=== PATIENT | female | born 1985 | race Two or more races ===

== ENCOUNTER 2023-08-03 16:57 | Outpatient (RCR) | payer OTHER, SELFPAY ==
--- NOTE | ~2023-08-03 | US_ITS ---
EXAMINATION: US OB limited w BPP DATE: 08/03/2023 18:38 INDICATION: Third trimester with decreased movements and variables on nonstress test. TECHNIQUE: Real-time pelvic ultrasound was performed. The interpreting radiologist was not present fo r the study. COMPARISON: None. FINDINGS: There is a single living fetus in vertex presentation. The placenta is anterior. heart rate is 144 beats per minute (bpm). Biophysical profile performed by the technologist: breathing (30 sec sustained breathing in 30 minutes): 2 out of 2 movement (3 gross body movements in 30 minutes): 2 out of 2 tone (one episode of epezpmi-wgvgtzetr-xwmygvl limb movement): 2 out of 2 Amniotic fluid pocket (2 cm): 2 out of 2 Total score: 8 out of 8 IMPRESSION: 1. Single living fetus in vertex presentation with heart rate of 144 bpm. 2. Biophysical profile 8 out of 8. Reviewed, dictated and finalized at location A. CARE PHYSICAL THERAPIST
--- NOTE | 2023-08-03 19:11 | PC.NURSE ---
Spoke with Dr Rylie An about patient, reported patients C/O decreased movement, FHT, irregular contractions, and BPP results. Patient now states that she is feeling baby move much more. Dr. Rylie An requested ANABELA results and to continue to monitor FHT.
--- NOTE | 2023-08-03 19:41 | PC.NURSE ---
Updated Dr Rylie An on patients ANABELA results of 7.4 and Cat I tracing since he was last updated. OK to discharge at this time, patient was given education about when to return, to call if she has any questions, and instructed to follow up in office as previously scheduled.
[2023-08-03 19:44] VITALS: BP 101/60
--- NOTE | 2023-08-03 19:45 | PC.NURSE ---
1925: oncology technician called to state the pts AANBELA is 7.4. pt states the provider will ammend his note to add the ANABELA of 7.4.
== END 2023-11-01 23:59 | disposition home or self-care (01) ==
LOC: ANHOBOP 16:57
PROVIDERS: Visit Provider Obstetrics & Gynecology
DX: O36.8130 Decreased fetal movements, third trimester, not applicable or unspecified (principal); Z3A.40 40 weeks gestation of pregnancy
CPT/HCPCS: 59025; 76815; 76819

== ENCOUNTER 2023-08-04 05:33 | Inpatient (IN) | payer OTHER, SELFPAY ==
[2023-08-04] VITALS (143 sets, daily range): BP systolic 88–161; BP diastolic 42–105; PULSE 70–132; RESP 18; TEMP 36.2–37.4; O2SAT 64–100; BMI 24.1
[2023-08-04 06:10] LABS: Basophils Percent Auto 0.3 % (0.2-1.2); Eosinophils Absolute Auto 0.1 K/mm3 (0-0.3); Eosinophils Percent Auto 0.5 % (0-4.4); Hematocrit 41.6 % (37.0-47.0); Hemoglobin 14.2 g/dL (12.0-15.0); Immature Granulocyte Absolute 0.08 K/mm3 (0.00-0.031); Immature Granulocyte Percent A 0.7 % (0-0.5); Lymphocytes Absolute Auto 0.87 K/mm3 (0.9-3.2); Lymphocytes Percent Auto 8.2 % (18.3-44.2); Mean Corpuscular HGB Conc 34.1 g/dl (32-36); Mean Corpuscular Hemoglobin 32.5 pg (26-34); Mean Corpuscular Volume 95.2 fl (80-100); Monocytes Absolute Auto 0.7 K/mm3 (0.1-0.6); Monocytes Percent Auto 6.7 % (2.6-8.5); Neutrophils Absolute Auto 8.9 K/mm3 (1.3-6.7); Neutrophils Percent Auto 83.6 % (45.5-73.1); Platelet Count Result 172 k/mm3 (150-375); Red Blood Count 4.37 M/mm3 (4.2-5.4); Red Cell Distribution Width 12.9 % (11.5-14.5); White Blood Count 10.7 K/mm3 (4.5-10.0)
--- NOTE | 2023-08-04 06:31 | LDADM ---
This patient, Swathi Boudreaux, was admitted to Labor/Delivery/Recovery 105 on 08/04/23 at 05:33. Plans for labor, pain management and were discussed with patient. Patient/family oriented to hospital policies and general routines including ID bracelet, bed and alarms, visiting hours, pain management, procedures, bathroom and other care routines, personal items, smoking policy, room service/diet and guest tray routines, security routines, and visiting hours. Patient/Family are encouraged to report perceived risks to care and to ask questions if they do not understand what they are told or what they should do. See OBIX for further documentation.
[2023-08-04] MEDS: DEXTROSE 5%/LACTATED RINGERS 1,000 ML 999 ML IV CONT (06:41)
--- NOTE | 2023-08-04 07:33 | WPDANESEPP ---
Anes - Eval Pre Procedure Procedure: Labor Epidural Date/Time: 08/04/23 07:33 Surgeon: Fatimah Preop Diagnosis: Labor Pain Pre Op Diagnosis: Labor Patient Data Age: 37 Gender: F Height: 1.7 m Weight: 70 kg Last Vital Signs Pulse 112 H 08/04/23 07:31 BP 104/82 08/04/23 07:31 Pulse Ox 98 08/04/23 07:33 O2 Del Method Room Air 08/04/23 06:30 Allergies Allergy/AdvReac Type Severity Reaction Status Date / Time nickel Allergy Rash Verified 07/14/23 15:12 Home Medications Medication Instructions Recorded Confirmed Type prenat.vits,rigo,qnd-amye-uceot 1 tablet DAILY 07/14/23 08/04/23 History Laboratory Tests 08/04/23 05:58 WBC 10.7 H K/mm3 (4.5-10.0) RBC 4.37 M/mm3 (4.2-5.4) Hgb 14.2 g/dL (12.0-15.0) Hct 41.6 % (37.0-47.0) MCV 95.2 fl (80-100) MCH 32.5 pg (26-34) MCHC 34.1 g/dl (32-36) RDW 12.9 % (11.5-14.5) Plt Count 172 k/mm3 (150-375) MPV 10.0 fl (7.4-10.4) Immature Gran % (Auto) 0.7 H % (0-0.5) Neut % (Auto) 83.6 H % (45.5-73.1) Lymph % (Auto) 8.2 L % (18.3-44.2) [place] % (Auto) 6.7 % (2.6-8.5) Eos % (Auto) 0.5 % (0-4.4) Baso % (Auto) 0.3 % (0.2-1.2) Lymph # (Auto) 0.87 L K/mm3 (0.9-3.2) [place] # (Auto) 0.7 H K/mm3 (0.1-0.6) Eos # (Auto) 0.1 K/mm3 (0-0.3) Baso # (Auto) 0.0 K/mm3 (0.0-0.1) Abs Immat Gran (auto) 0.08 H K/mm3 (0.00-0.031) Absolute Neuts (auto) 8.9 H K/mm3 (1.3-6.7) Absolute Nucleated RBC 0.0 K/mm3 (0.0-0.012) Nucleated RBC % 0.0 % (0.0-0.2) RPR Pending Blood Type O Positive Antibody Screen Negative : gestational age Patient hx anesthesia problems: none Family hx anesthesia problems: none Results Review: All pre-operative results and documents have been reviewed as part of the pre-operative evaluation. [facility] Family History Family History Grandparent Colon cancer Father Diabetes mellitus Grandparent Diabetes mellitus Social History Social History Substance use: never Spiritual care concerns: No Exam Day of Procedure 08/04/23 07:33 Patient weight: normal Heart: regular rate and rhythm Lungs: normal air movement Airway: Mallampati scale class II Neurological: alert and oriented
--- NOTE | 2023-08-04 07:56 | PM.IMHP ---
H&P: HPI History of Present Illness Date/Time: 08/04/23 07:56 Chief Complaint: Labor at term Narrative: this is a 37-year-old 1 para 0 whose last menstrual period was 10/27/2022, EDC is 08/04/2023, presents at 40 weeks gestation in active labor. Her has been complicated. She is negative for group B strep. [facility] Family History Family History Grandparent Colon cancer Father Diabetes mellitus Grandparent Diabetes mellitus Social History Social History Substance use: never Spiritual care concerns: No Meds Home Medications and Allergies Home Medications Medication Instructions Recorded Confirmed Type prenat.vits,rigo,kha-dqwd-ocgsh 1 tablet DAILY 07/14/23 08/04/23 History Allergies Allergy/AdvReac Type Severity Reaction Status Date / Time nickel Allergy Rash Verified 07/14/23 15:12 Vital Signs Vital Signs - 24 hr 08/04/23 06:53 08/04/23 07:01 08/04/23 07:16 Pulse Rate 87 78 76 Blood Pressure 109/74 110/71 101/66 Pulse Oximetry Oxygen Delivery 08/04/23 07:31 08/04/23 07:33 08/04/23 07:38 Pulse Rate 112 H Blood Pressure 104/82 Pulse Oximetry 98 98 Oxygen Delivery 08/04/23 07:42 08/04/23 07:43 08/04/23 07:45 Pulse Rate 93 97 87 Blood Pressure 110/67 110/73 109/70 Pulse Oximetry 95 Oxygen Delivery 08/04/23 07:46 08/04/23 07:48 08/04/23 07:49 Pulse Rate 88 89 Blood Pressure 105/64 105/70 Pulse Oximetry 98 Oxygen Delivery 08/04/23 07:51 08/04/23 07:53 08/04/23 07:55 Pulse Rate 132 H 97 85 Blood Pressure 103/63 120/69 113/60 Pulse Oximetry 98 Oxygen Delivery 08/04/23 06:30 Pulse Rate Blood Pressure Pulse Oximetry Oxygen Delivery Room Air Exam Const: General: cooperative, healthy appearing and comfortable Nutritional Appearance: average body habitus Orientation/consciousness: oriented to person, oriented to place and oriented to time Resp: Effort & Inspection: normal respiratory effort Cardio: Rate: regular rate Rhythm: regular rhythm Heart sounds: S1 normal heart sound present and S2 normal heart sound present GI: Inspection: normal to inspection ( Gravid soft uterus) Auscultation: normal bowel sounds : External Female Exam: normal external appearance Speculum Exam - Vagina: normal appearance of the vagina Speculum Exam - Cervix: normal appearance of the cervix ( cervix 5/ 90/-2. AROM clear. FHTs reassuring) H&P: Results Labs Labs: Short CBC 08/04/23 Range/Units 05:58 WBC 10.7 H (4.5-10.0) K/mm3 Hgb 14.2 (12.0-15.0) g/dL Hct 41.6 (37.0-47.0) % Plt Count 172 (150-375) k/mm3 Assessment and Plan Assessment and plan (1) Term : Code(s): Z34.90 - Encounter for supervision of normal , unspecified, unspecified trimester Status: Acute Plan spontaneous vaginal delivery is expected. She has an epidural candidate.
[2023-08-04] MEDS: LACTATED RINGERS 1,000 ML 125 ML IV CONT (09:00)
[2023-08-04] MEDS: OXYTOCIN 30 UNITS/NS 500 ML 30 UNITS/500 ML BAG 999 UNITS IV CONT (14:48)
--- NOTE | 2023-08-04 14:59 | PM.DS ---
DS: Admitting Diagnosis Discharge Date 08/06/2022 Admitting Diagnosis Term DS: Discharge Diagnosis Discharge Diagnosis (1) Term : Code(s): Z34.90 - Encounter for supervision of normal , unspecified, unspecified trimester Status: Acute DS: Summary Hospital Course Reason for hospitalization: patient was admitted on 08/04/2023 active labor at 40 weeks gestation Hospital Course: her hospital course was unremarkable. She remained afebrile. She was up, voiding without difficulty, ambulating, generally without complaints. Time Spent with Patient Time attestation: Total time spent providing and/or coordinating discharge services: Exam Const: General: cooperative, healthy appearing and comfortable Nutritional Appearance: average body habitus Orientation/consciousness: oriented to person, oriented to place and oriented to time HENMT: Head: normal to inspection Resp: Effort & Inspection: normal respiratory effort Cardio: Rate: regular rate Rhythm: regular rhythm Heart sounds: S1 normal heart sound present and S2 normal heart sound present GI: Inspection: normal to inspection DS: Data Data Completed and Pending Labs on day of discharge: Labs from last 24 hours 08/04/23 05:58 WBC 10.7 H RBC 4.37 Hgb 14.2 Hct 41.6 MCV 95.2 MCH 32.5 MCHC 34.1 RDW 12.9 Plt Count 172 MPV 10.0 Immature Gran % (Auto) 0.7 H Neut % (Auto) 83.6 H Lymph % (Auto) 8.2 L [place] % (Auto) 6.7 Eos % (Auto) 0.5 Baso % (Auto) 0.3 Lymph # (Auto) 0.87 L [place] # (Auto) 0.7 H Eos # (Auto) 0.1 Baso # (Auto) 0.0 Abs Immat Gran (auto) 0.08 H Absolute Neuts (auto) 8.9 H Absolute Nucleated RBC 0.0 Nucleated RBC % 0.0 RPR Pending Blood Type O Positive Antibody Screen Negative Discharge Plan Discharge Attending physician on discharge: Julio Barrera Discharging Clinician: Julio Barrera Patient Disposition: Home, Self-Care Activity: may shower and pelvic rest Diet: heart healthy Wound Care Instructions: follow printed instructions Patient Instructions: Antibiotic Form Stand Alone Forms: General Discharge Information Follow-up/Referrals: Julio Barrera MD [Physician] - Discharge Medications: Continued #2 Tablet 1 tablet DAILY Date of admission: 08/04/23 05:33 Primary Care Provider: PH[facility]IC[facility] Admitting Provider: Gael Mccormick Attending physician on admission: Gael Mccormick Condition: Stable
--- NOTE | 2023-08-04 15:01 | P.PCNOB_ITS ---
OB - Vaginal Delivery Note Procedure Delivery date: 08/04/23 Induction method: None Delivery augmentation: Rupture of Membranes Delivery monitor: External FHT and External Uterine Route of delivery: Episiotomy description: None Laceration Description: Perineal - 1st Degree Quantitative Blood Loss (ml): 61 Anesthesia type: Epidural Disposition: Floor Complications: No immediate complications [place] Baby Date of : 08/04/23 Time of : 14:45 Weeks of gestation at delivery: 40 Infant gender: Female presentation: vertex position: Right Occiput Anterior Placenta delivery description: Spontaneous Cord Vessel Description: 3 Vessels, Nuchal Cord (x 2) and Around Body score one minute: 8 score five minutes: 9
[2023-08-04] MEDS: OXYTOCIN 30 UNITS/NS 500 ML 30 UNITS/500 ML BAG 125 UNITS IV CONT (15:18)
[2023-08-04] MEDS: WITCH HAZEL 40 PADS 1 PAD TOPICAL (16:59)
[2023-08-04] MEDS: BENZOCAINE 20% AER SPR (*SP) 56 GM CAN 1 SPRAY TOPICAL (16:59)
--- NOTE | 2023-08-04 21:13 | OBPPTRN ---
Patient transferred to post room #290 via (wheelchair). Support person present. Oriented to unit, room, information board, rooming in, admission packet and security measures. Patient verbalizes understanding.
[2023-08-04] MEDS: ACETAMINOPHEN 325 MG TABLET 650 MG PO (22:45)
[2023-08-05] VITALS: BP 90/55; PULSE 77; RESP 18; TEMP 36.7; O2SAT 98
[2023-08-05] MEDS: IBUPROFEN 600 MG TABLET PO ×4 (03:27→23:58)
[2023-08-05 04:16] LABS: Hematocrit 36.6 % (37.0-47.0); Hemoglobin 12.3 g/dL (12.0-15.0)
--- NOTE | 2023-08-05 05:35 | OBPPTRN ---
Patient transferred to post room #290 via (wheelchair ). Support person present. Oriented to unit, room, information board, rooming in, admission packet and security measures. Patient verbalizes understanding.
--- NOTE | 2023-08-05 07:45 | PM.OBPNVD ---
OB - PN: Subj Subjective Date/time seen: 08/05/23 07:45 Patient comments: no complaints and pain well controlled baby status: doing well OB - PN: Obj Data Labs 08/05/23 03:14 Labs: Laboratory Results - last 24 hr 08/05/23 03:14 Hgb 12.3 Hct 36.6 L OB - PN A/P Plan day: 1 Plan: routine care Time Spent With Patient Time: Total time spent is greater than 50% in coordination of care (as documented) at patient's floor/unit and/or counseling patient: Time with patient: less than 15 minutes Exam Const: General: cooperative, healthy appearing and comfortable Nutritional Appearance: average body habitus Orientation/consciousness: oriented to person, oriented to place and oriented to time Resp: Effort & Inspection: normal respiratory effort Cardio: Rate: regular rate Rhythm: regular rhythm Heart sounds: S1 normal heart sound present and S2 normal heart sound present GI: Inspection: normal to inspection
[2023-08-05 07:49] VITALS: BP 98/60; PULSE 79; RESP 18; TEMP 36.2; O2SAT 99
[2023-08-05] MEDS: MULTIVIT/MIN/PREN/FOL AC/IRON TABLET 1 TAB PO (10:09)
[2023-08-05] MEDS: ACETAMINOPHEN 325 MG TABLET 650 MG PO ×2 (10:09→17:06)
[2023-08-05] MEDS: DOCUSATE SODIUM 100 MG CAPSULE PO ×2 (10:09→17:07)
--- NOTE | 2023-08-05 12:04 | WPDANLDPN2 ---
Anes-Prog Note L&D Date/Time: 08/05/23 12:04 Comfortable throughout: labor and delivery Neuraxial method: epidural Epidural/Spinal procedure site: clean & non-tender Neuro status: Neuro function grossly intact. Cardiovascular status: normal Respiratory status: normal Airway patency: baseline Mental status: baseline Post-Op hydration status: normal Vital Signs: Last Vital Signs Temp 36.2 C L 08/05/23 07:49 Pulse 79 08/05/23 07:49 Resp 18 08/05/23 07:49 BP 98/60 L 08/05/23 07:49 Pulse Ox 99 08/05/23 07:49 O2 Del Method Room Air 08/04/23 06:30 Pain score (VAS): 1/10 I/O: Intake & Output 08/04/23 08/05/23 08/05/23 23:59 07:59 15:59 Intake Total 250 Balance 250 Post-procedural complaints: none Patient feedback: Patient satisfied with anesthetic care.
[2023-08-05 19:20] VITALS: BP 100/51; PULSE 74; RESP 16; TEMP 36.7; O2SAT 99
[2023-08-06] MEDS: DIBUCAINE 1% OINTMENT 30 GM TUBE 1 APPLIC TOPICAL (00:33)
[2023-08-06] MEDS: ACETAMINOPHEN 325 MG TABLET 650 MG PO ×2 (03:12→11:07)
[2023-08-06 08:30] VITALS: BP 114/60; PULSE 75; RESP 16; TEMP 36.8; O2SAT 99
[2023-08-06] MEDS: DOCUSATE SODIUM 100 MG CAPSULE PO ×2 (08:32→14:06)
[2023-08-06] MEDS: MULTIVIT/MIN/PREN/FOL AC/IRON TABLET 1 TAB PO (08:32)
[2023-08-06] MEDS: IBUPROFEN 600 MG TABLET PO ×2 (08:32→14:06)
--- NOTE | 2023-08-06 08:40 | PM.OBPNVD ---
OB - PN: Subj Subjective Date/time seen: 08/06/23 08:41 Patient comments: no complaints and pain well controlled baby status: doing well and nursing well OB - PN: Obj Data Labs 08/05/23 03:14 OB - PN A/P Plan day: 2 Plan: routine care, discharge home and follow up 6 weeks Time Spent With Patient Time: Total time spent is greater than 50% in coordination of care (as documented) at patient's floor/unit and/or counseling patient: Time with patient: less than 15 minutes Exam Const: General: cooperative, healthy appearing and comfortable Nutritional Appearance: average body habitus Orientation/consciousness: oriented to person, oriented to place and oriented to time Resp: Effort & Inspection: normal respiratory effort Cardio: Rate: regular rate Rhythm: regular rhythm Heart sounds: S1 normal heart sound present and S2 normal heart sound present GI: Inspection: normal to inspection
[2023-08-06 13:03] LABS: Rapid Plasma Reagin Non-Reactive (NonReactive)
--- NOTE | 2023-08-06 15:00 | PC.NURSE ---
Patient viewed the discharge video Mother & Baby Care, The First Two Weeks . Patient was given the opportunity and encouraged to ask questions. Patient verbalized understanding of information shared and has been given the mother/baby guide for home reference.
--- NOTE | 2023-08-06 15:25 | PC.NURSE ---
[id number] Reintroductions were made as we have met prior to delivery to discuss education together. Consulted with patient to assess needs related to . Discussed with mother her?plans to feed?her , the?experience so far and how I can help moving forward. Resources provided for inpatient name written on the communication board using the call light. Parents voiced understanding of information and will call if there is a request for assistance. Reported to the Primary RN. [phone] Parents called out requesting assistance with . Reviewed understanding of the benefits of skin to skin (mother is demonstrating an unwrapped infant upright on her chest S2S), stimulating with massage touch, changing positions to encourage wakefulness, how to watch for early feeding cues, responsive feeding, feeding on demand (aiming for 8-12 times in 24 hours, about every 2-3 hours), milk production, building/maintaining a milk supply, duration of feeding, signs of adequate intake/output and how to record on the feeding sheet. Mother works well with her infant and needs encouragement and practice. Reviewed positioning and ear, shoulder, hip alignment, supporting the breast to facilitate a deep latch, asymmetrical latch (off-center), leading with the chin with a big, open, wide gape and body close to mother. Infant latched optimally to the right, then left breast in football position. Education given to the mother of how to visualize the suckling (with good rocking jaw motion), swallows (dropping of the lower jaw) and how to listen for drinking at the breast (the ka sound). was able to maintain latch without pain to mother protecting the nipple with optimal positioning and latching. Reviewed comfort measures of healing with a warm, wet washcloth to rinse breast, then leave open to air-dry, good handwashing when or touching the breast/nipples to prevent infection. Mother voiced understanding of skin to skin, stimulating with massage touch, responsive feedings, hand expressed colostrum, talking to infant to encourage if it has been 2 -2.5 hours since the start of the last , to call if does not latch, or if there is discomfort with . Resources used for education were facilitated with the visual educational handouts, tool, mom and baby guide. [phone] Parents called out requesting assistance with . Mother has independently latched optimally to the left breast using cross cradle positioning. Father of is very support and part of the team. Infant is demonstrating good suck/swallow ratios and mother is able to detach infant to protect her nipple when and if the latch changes to shallow and starts to be uncomfortable. At almost 48 hours old mother is encouraged to practice switching her breast after 10-15 min or if there is pain. Infant demonstrates appropriated swallowing on both breast, mother denies pain and on a rare latch there's slight flattening of the nipple as likes to pull the tongue up when crying or eagerly to latch. Mother encouraged to be yañez with latching bringing to her. She also practices the sandwich hold when necessary to achieve a deeper latch. Reminded mother to use good handwashing technique to prevent infection. Mother is feeding appropriately for growth of infant and understands stimulating to eat if needed. Infant has had appropriate feedings in the last 24 hours meets the outcomes for weight, output, blood sugar and jaundice at this time. Mother states she is confident to continue effectively her at home, when to call for assistance, denies any additional assistance or education at this time. Demonstrated paced bottle feeding (paced bottle feeding handout) if they believe their infant needs more than taking in at the breast as has already been supplemented with formula. Reviewed
[2023-08-07 08:43] VITALS: BP 115/62; PULSE 78; RESP 18; TEMP 37.2; O2SAT 100
== END 2023-08-06 18:22 | disposition home or self-care (01) | DRG 807 ==
LOC: ANHLDR 15:01 → ANHOB2 08-06 13:54 → ANHLDR 08-08 07:49 → ANHOB2 08-08 07:49
PROVIDERS: Admitting Provider Obstetrics & Gynecology; Visit Provider Obstetrics & Gynecology
DX: O69.82X0 Labor and delivery complicated by other cord entanglement, without compression, not applicable or unspecified (principal); Z37.0 Single live birth; O70.0 First degree perineal laceration during delivery; Z3A.40 40 weeks gestation of pregnancy
CPT/HCPCS: 36415; 85014; 85018; 85025; 86592; 86850; 86900; 86901; A9270; J2590; J2795; J7120; J7121

== ENCOUNTER 2023-08-17 14:02 | Outpatient (RCR) | payer OTHER, SELFPAY ==
--- NOTE | 2023-08-17 16:05 | PC.NURSE ---
In- 1410 Out- 1540 Reason for visit: latch issues and low milk supply History: Mother's labor was augmented with AROM for a delivery on 08/04/23 of a female of 40 weeks. Infant was unremarkable at . There was an episode of receiving gel and formula for a low blood sugar, jaundice level was 10.3 at 38 hours and parents were concerned about getting enough from . Infant did at times have difficulty latching deeply on the breast. Parents were discharged to home supplementing their infant and the practice of , along with protecting the milk supply with pumping became inconsistent related to the demands of new parenting. For the last few days mother has begun consistent pumping every 2-3 hours to improve her milk supply. She notices that she pumps about 20mls most of the time with more from the right breast than the left. History: Infant has a tight upper lip that goes into the gumline and tucks the top lip when bottle or . Observations: Mother is not latching deeply. Reviewed understanding of the benefits of skin to skin (demonstrating unwrapping infant and placing upright on her chest), stimulating with massage touch, changing positions to encourage wakefulness, how to watch for early feeding cues, responsive feeding, feeding on demand (aiming for 8-12 times in 24 hours, about every 2-3 hours), milk production, building/maintaining a milk supply, duration of feeding, and signs of adequate intake/output. Mother works well with her with encouragement and education. Reviewed positioning and ear, shoulder, hip alignment, supporting the breast to facilitate a deep latch, asymmetrical latch (off-center), leading with the chin with a big, open, wide gape and body close to mother. Infant latched optimally to the left, then the right breast first in cross cradle, then in football position. Education given to the mother of how to visualize the suckling (with good rocking jaw motion), swallows (dropping of the lower jaw) and how to listen for drinking at the breast (the ka sound). Infant was able to maintain latch without pain to mother protecting the nipple with optimal positioning and latching. Reinforced understanding of milk production, transition of milk, signs of adequate intake, transition of stool, prevention/relief of engorgement, plugged ducts, mastitis, responsive watching for feeding cues, the different methods of stimulating to breastfeed 1-3 hours after the start of the last feeding, and when to call a provider using the resource of the mom and baby guide. Mother voiced understanding of the education shared. was able to remove 4mls from the left breast in cross cradle, 23mls from the right in cross cradle, 1ml from the left in football, then 2mls from the right in football. weight: 3050g Lowest weight: 2954g Pre-feed weight: 3332g Post-feed weight: 3362g Plan of Care: Mother is going to practice as her energy and infant will allow aiming for every 2-3 hours during the daytime and 1-2 times at night. She will pump both breast after practicing , while someone supplements with formula. We reviewed different ways to improve her milk supply with the main source being supply and demand. Maternal mother is visiting and is very supportive along with father of baby Vamsi. Mother will aim to be more consistent with stimulating her breasts/hormones to make milk. Mother was encouraged to latch infant giving her the breast milk she has and topping off with formula. The plan at this time is to give it a week and see how it goes while her mother is here to help. Follow up plans: Mother voiced understanding of the education and has contact resource information if she needs assistance in the future.
== END 2023-11-15 23:59 | disposition home or self-care (01) ==
LOC: ANHOBOP 14:02
PROVIDERS: Visit Provider Pediatrics
DX: Z39.1 Encounter for care and examination of lactating mother (principal)
CPT/HCPCS: 99213; G0463